=== PATIENT | female | born 1945 | race Caucasian/White ===

== ENCOUNTER 2017-12-25 05:44 | Day surgery (SDC) | payer MEDICARE, OTHER ==
[2017-12-25] MEDS: Lactated Ringers 1,000 ML IV SCH (06:10)
[2017-12-25 08:30] VITALS: BP 138/76; PULSE 56; O2SAT 99
--- NOTE | 2017-12-25 09:09 | OP ---
SURGERY DATE: 12/25/17710 SURGERY TIME: PREOPERATIVE DIAGNOSIS: 1. SCREENING EXAM. POSTOPERATIVE DIAGNOSIS: 1. NORMAL COLON. PROCEDURE: 1. Colonoscopy. SURGEON: Dr. Lisa. ANESTHESIA: MAC. Medications given by the Anesthesia Department. BRIEF HISTORY: The patient is a 72 y/o WF presenting now for colonoscopic evaluation. She reports it has been more than 10 years since her previous evaluation. The patient was appraised of the risks of the procedure including the risk of perforation, phlebitis, untoward reaction to medication, bleeding, and missed lesions. The patient verbalized her understanding and desired to have the procedure performed. DESCRIPTION OF PROCEDURE: The patient was given the medications by the Anesthesia Department. She had continuous pulse oximetry, ECG monitoring, intermittent BP monitoring, and end tidal CO2 monitoring during the examination. She was placed in the left lateral decubitus position. A digital rectal examination was performed and revealed normal anal sphincter tone and no masses. The flexible Olympus pediatric colonoscope was used to intubate the rectum. A view of the colon was developed sequentially to the cecum. Upon insertion and withdrawal, including a retroflex view in the rectum, no mucosal lesions were encountered. The scope was removed from the patient who tolerated the procedure well and was sent back to OP recovery in good condition. The prep was noted to be fair to good.
[2017-12-25] MEDS ORDERED: Ketamine HCl 50 MG/ML IJ ONE (13:12)
[2017-12-25] MEDS ORDERED: DIPRIVAN 200 MG/20 ML IV ONE (13:12)
== END 2017-12-25 08:47 | disposition home or self-care (01) ==
LOC: SDC 05:44
PROVIDERS: ATTEND Family Medicine
DX: Z12.11 Encounter for screening for malignant neoplasm of colon (principal)
CPT/HCPCS: 94250; G0121; 99100; J2704

== ENCOUNTER 2023-03-14 17:22 | Emergency (ER) | payer MEDICARE, OTHER ==
[2023-03-14 17:46] VITALS: BP 144/80; PULSE 85; RESP 20; TEMP 98; O2SAT 97
--- NOTE | 2023-03-14 18:07 | ERPHSYRPT ---
- History of Present Illness Time Seen by Provider: 03/14/23 18:02 Source: patient, family Exam Limitations: no limitations Patient Subjective Stated Complaint: C/O rash under right breast that patient states may be shingles. Triage Nursing Assessment: Patient ambulated back to ER without difficulties. She is alert and oriented. NO SOB. A rash is present under right breast; red, with some pinpoint pustules and scabs. One small pustule also noted to right mid back. Physician History: This is a 77-year-old white female patient of nurse practitioner Adarsh who presents with a burning sensation underneath her right breast and travels posteriorly around to her right side and back with associated rash. There are a few blisters present. Patient states that the pain started a few days prior to her noticing a few raised rash areas. Today the rash increased in its number of blistering areas. Patient states that Aleve helped with her pain. She rates her level of pain is 2 out of 10. Timing/Duration: day(s) Quality: burning, itchy (2 to 3 days ago) Severity: mild Location: torso Possible Causes: other (Shingles) Associated Symptoms: blisters, change in skin texture Allergies/Adverse Reactions: No Known Drug Allergies Allergy (Verified 03/14/23 17:46) Home Medications: Atorvastatin Calcium [Lipitor] 1 tab PO DAILY 03/14/23 [History] Hx Tetanus, Diphtheria Vaccination/Date Given: Yes Hx Influenza Vaccination/Date Given: Yes Hx Pneumococcal Vaccination/Date Given: Yes (2012) Immunizations Up to Date: Yes Travel Risk - International Travel Have you traveled outside of the country in past 3 weeks: No - Coronavirus Screening Are you exhibiting any of the following symptoms?: No Close contact with a COVID-19 positive Pt in past 14-21 Days: No - Vaccine Status Have you recieved a Covid-19 vaccination: Yes [employer]: [employer] - Vaccination Dates Date of 2cond Vaccination (if applicable): ? - Review of Systems Constitutional: No Symptoms Eyes: No Symptoms Ears, Nose, & Throat: No Symptoms Respiratory: No Symptoms Cardiac: No Symptoms Abdominal/Gastrointestinal: No Symptoms Skin: Other (Blistering tender rash dermatomal distribution under her right breast traveling around to her back on the right side) Neurological: No Symptoms Psychological: No Symptoms Endocrine: No Symptoms Hematologic/Lymphatic: No Symptoms Immunological/Allergic: No Symptoms All Other Systems: Reviewed and Negative - Past Medical History Pertinent Past Medical History: Yes Neurological History: No Pertinent History ENT History: No Pertinent History Cardiac History: High Cholesterol Respiratory History: No Pertinent History Endocrine Medical History: No Pertinent History, Other Musculoskeletal History: Osteoarthritis GI Medical History: No Pertinent History History: No Pertinent History Psycho-Social History: No Pertinent History Female Reproductive Disorders: No Pertinent History Other Medical History: born with one kidney - Past Surgical History Past Surgical History: Yes Neuro Surgical History: No Pertinent History Cardiac: No Pertinent History Respiratory: No Pertinent History Gastrointestinal: No Pertinent History Genitourinary: No Pertinent History Musculoskeletal: Joint Replacement Female Surgical History: Hysterectomy Other Surgical History: Bilateral hip replacements. - Social History Smoking Status: Never smoker Exposure to second hand smoke: No Drug Use: none Patient Lives Alone: Yes - Nursing Vital Signs Nursing Vital Signs: Initial Vital Signs Temperature 98 F 03/14/23 17:22 Pulse Rate 85 03/14/23 17:22 Respiratory Rate 20 03/14/23 17:22 Blood Pressure 144/80 03/14/23 17:22 O2 Sat by Pulse Oximetry 97 03/14/23 17:22 Pain Scale Pain Intensity 2 - Physical Exam General Appearance: no apparent distress, alert, anxiety Eye Exam: PERRL/EOMI, eyes nml inspection Ears, Nose, Throat Exam: normal ENT inspection, moist mucous membranes, tonsillar exudate Neck Exam: normal inspection, non-tender, supple Respiratory Exam: airway intact, No chest tenderness, No respiratory distress Gastrointestinal/Abdomen Exam: No tenderness Pelvic Exam: not done Rectal Exam: not done Back Exam: rash (Dermatomal distribution) Extremity Exam: normal inspection, normal range of motion, pelvis stable Neurologic Exam: alert, oriented x 3, cooperative, 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, normal mood/affect, nml cerebellar function, nml station & gait, sensation nml Skin Exam: rash (Raised red patch of rash in the skin in a dermatomal distribution traveling from under her right breast around to the right side and a few spots of similar rash right posterior torso) Lymphatic Exam: No adenopathy SpO2 Interpretation: normal SpO2: 97 O2 Delivery: Room Air - Course Nursing assessment & vital signs reviewed: Yes - Progress Progress: unchanged Progress Note: 03/14/23 18:06 This patient's medical issues 1 of low complexity the level complex in the workup performed is based on review of the patient's past medical history, review the patient's medication list, review the patient's drug allergy list, history present illness and physical findings on examination. No radiographic or laboratory studies are necessary in this patient. Patient appears to have shingles. We will provide her with acyclovir here followed by remotely sending more acyclovir to her pharmacy. Counseled pt/family regarding: diagnosis, need for follow-up Medical Desision Making - Diagnostic Testing Diagnostic test were ordered, analyzed, and reviewed by me: No - Risk of complications The pt has a mod risk of morbidity or mortality based on: Need for prescription drug management - Departure Departure Disposition: Home Clinical Impression: Shingles rash Condition: Stable Critical Care Time: No Referrals: ISI MONTES NP [Primary Care Provider] - Follow up/PCP as directed Additional Instructions: Keep the site clean daily with soap and water. May cover the area with a nonstick gauze. Avoid exposure to individuals who are , have compromised immune systems and/or have not had a history of chickenpox. Follow- up with your primary care provider for further evaluation management. Use Aleve twice a day for pain control. Prescriptions: Acyclovir 800 mg [Acyclovir] 800 mg PO 5XD 7 Days #35 tablet
[2023-03-14] MEDS ORDERED: ACYCLOVIR PO ONE ×2 (18:11→18:15)
[2023-03-14] MEDS ORDERED: ACYCLOVIR ONE (18:14)
== END 2023-03-14 18:25 | disposition home or self-care (01) ==
LOC: ED 17:22
DX: B02.9 Zoster without complications (principal); R21 Rash and other nonspecific skin eruption; E78.5 Hyperlipidemia, unspecified; Z79.899 Other long term (current) drug therapy
CPT/HCPCS: 36000; 99283; A9270-GY